=== PATIENT | female | born 1980 | race Two or more races ===

== ENCOUNTER 2023-05-19 10:11 | Outpatient (REF) | payer BC, OTHER, SELFPAY ==
[2023-05-21 09:02] LABS: Prolactin 216.2 ng/mL
== END 2023-05-19 10:12 | disposition home or self-care (01) ==
LOC: HO.LAB 10:11
PROVIDERS: Visit Provider Clinical Nurse Specialist Psychiatric/Mental Health, Adult
DX: Z79.899 Other long term (current) drug therapy (principal)
CPT/HCPCS: 36415; 84146